=== PATIENT | male | born 1985 | race Caucasian/White ===

== ENCOUNTER 2020-05-12 12:46 | Emergency (ER) | payer MEDICAID, OTHER ==
[~2020-05-12] VITALS: Ht 170.2 cm; Wt 79.5 kg
[2020-05-12] MEDS ORDERED: TETanus/Pertussis (Acell)/Diphther VAC/PF (Tdap-Adult) 0.5ml syringe IMVAC ONE (13:55)
[2020-05-12] MEDS ORDERED: NEOM28.37 TOP (15:09)
[2020-05-12 15:29] VITALS: BP 134/92
== END 2020-05-12 15:31 | disposition home or self-care (01) ==
LOC: ER 12:47
DX: S90.812A Abrasion, left foot, initial encounter (principal); M79.672 Pain in left foot; W11.XXXA Fall on and from ladder, initial encounter; Y93.89 Activity, other specified; Y92.89 Other specified places as the place of occurrence of the external cause; Y99.8 Other external cause status
CPT/HCPCS: 12001; 73630; 90471; 90715; 99283

== ENCOUNTER 2020-10-23 09:45 | Emergency (ER) | payer MEDICAID ==
[~2020-10-23] VITALS: Ht 172.7 cm; Wt 83.2 kg
[~2020-10-23 09:45] MED LIST: NEOM28.37 TOP
[2020-10-23 10:12] VITALS: BP 150/96
[2020-10-23] MEDS ORDERED: CEPH-585 PO (11:08)
== END 2020-10-23 11:30 | disposition home or self-care (01) ==
LOC: ER 09:46
DX: L03.112 Cellulitis of left axilla (principal); I88.9 Nonspecific lymphadenitis, unspecified; Z72.0 Tobacco use; Z79.2 Long term (current) use of antibiotics
CPT/HCPCS: 99283

== ENCOUNTER → 2020-10-26 | Emergency (ER) | payer MEDICAID ==
[~2020-10-26] VITALS: Ht 170.2 cm; Wt 83.2 kg
[~2020-10-26] MED LIST changes: +CEPH-585 PO; +SULF1TAB49 PO
[2020-10-26 20:26] VITALS: BP 142/93
== END | disposition home or self-care (01) ==
LOC: ER 20:20
DX: L03.112 Cellulitis of left axilla (principal); Z79.2 Long term (current) use of antibiotics
CPT/HCPCS: 99283